=== PATIENT | female | born 1945 | race Caucasian/White ===

== ENCOUNTER 2022-11-28 09:00 | Outpatient (RCR) | payer MEDICARE, SELFPAY | END 2023-01-14 09:59 | disposition home or self-care (01) | PROVIDERS: PCP Family Medicine; Visit Provider Family Medicine | DX: M54.50 Low back pain, unspecified (principal); G89.29 Other chronic pain; R26.89 Other abnormalities of gait and mobility; Z51.89 Encounter for other specified aftercare | CPT/HCPCS: 97110; 97112; 97140; 97162 ==

== ENCOUNTER 2024-05-28 15:06 | Emergency (ER) | payer MEDICARE, SELFPAY ==
[2024-05-28 15:12] VITALS: BP 202/110; PULSE 90; RESP 18; TEMP 36.6; O2SAT 97; BMI 31.2
--- NOTE | 2024-05-28 16:43 | ED_ITS ---
HPI - General Adult General Date Seen: 05/28/24 Chief complaint: Hypertension Stated complaint: Hypertension Time Seen by Provider: 05/28/24 16:43 History of Present Illness HPI narrative: Pleasant 78-year-old female is referred from the clinic in [place] for el evated blood pressure. She apparently went to the clinic today to have a injection or a block done to her back. The providers at the [facility] for unable to do her to her procedure because her blood pressure was elevated. She is not sure if she took her normal blood pressure medication (metoprolol) yesterday evening or this morning. She does not have a headache. Vision is normal. No dizziness. No chest pain. No trouble breathing. No swelling in her legs. Urination has been normal. She feels fine. She takes losartan and metoprolol once daily. She can not remember if she takes some in the morning or at night. She think she probably took them yesterday evening, as her normal routine. She has not missed any doses. She has a history of high blood pressure and she is on metoprolol and losartan. Her primary care is through the [facility] system and she has a dicer operator through [facility]. She also has a history of sarcoidosis which in the past had cause some renal damage. She is now on long-term prednisone 5 mg daily for her sarcoid. She follows with a dicer operator through the [facility] system. She reports that for this past several months her kidney function has rebounded him and totally normal. It sounds like it responded to the prednisone treatment. Her dicer operator is very pleased with her lab work and anticipates she will never have renal failure from her sarcoidosis. He had previously been seeing her fairly often, but since she has been doing better, recently he has been recommending for every four-month checkups with him. She does typically run a blood pressure around 160/100 in her doctor's office. She says her dicer operator has talked to her about potentially increasing her blood pressure medications, but decided to take a wait and see approach at her last visit. She is actually due for her 4 month checkup in 3 days, on Friday. She has also been dealing with some pain in her low back recently. She actually went to the [facility] spine clinic in [place] today to get an injection in her low back. Her blood pressure was reading elevated at about 247/110. They did multiple rechecks. Because the blood pressure was elevated, even though she was asymptomatic, they told her to come to the ER and that she could not have the procedure today. They did not want her to have a stroke. Since she arrived here in the ER her blood pressure now come down to about 167/100. She did not take any extra medications or have any treatment for it. Just came down on its own. She can needs to remain asystematic. Related Data Home Medications ?Medication ?Instructions ?Recorded ?Confirmed atorvastatin 10 mg tablet 10 mg PO DAILY 05/28/24 05/28/24 gabapentin 300 mg capsule 300 mg PO DAILY 05/28/24 05/28/24 gabapentin 600 mg tablet 600 mg PO DAILY 05/28/24 05/28/24 losartan 100 mg tablet 100 mg PO DAILY 05/28/24 05/28/24 metformin 500 mg tablet 500 mg PO BID 05/28/24 05/28/24 metoprolol succinate 25 mg 25 mg PO DAILY 05/28/24 05/28/24 tablet,extended release 24 hr omeprazole 20 mg capsule,delayed 20 mg PO DAILY 05/28/24 05/28/24 release oxybutynin chloride 5 mg 5 mg PO DAILY 05/28/24 05/28/24 tablet,extended release 24 hr prednisone 5 mg tablet 5 mg PO DAILY 05/28/24 05/28/24 tramadol 50 mg tablet 50 mg PO 3XD PRN 05/28/24 05/28/24 Exam Narrative: Exam Narrative: Constitutional: Appears well-developed and well-nourished. Alert. Conversant. Non toxic. HENT: Head: Atraumatic. Nose: Nose normal. Mouth/Throat: Oral mucosa is clear and moist. no trismus. Eyes: Conjunctivae normal. EOM normal. Pupils equal, round, and reactive to light. No scleral icterus. Neck: Normal range of motion. Neck supple. No tracheal deviation present. No JVD Cardiovascular: Normal rate, regular rhythm. No gallop. No friction rub. Soft systolic murmur heard. Symmetric radial artery pulses . Normal cap refill Pulmonary/Chest: Effort normal. No stridor. No respiratory distress. No wheezes. No rales. No rhonchi . No tenderness. Abdominal: Soft.No distension. No mass. No tenderness. No rebound. No guarding. No CVA tenderness. Musculoskeletal: RUE: Normal range of motion. No tenderness. No deformity LUE: Normal range of motion. No tenderness. No deformity RLE: Normal range of motion. No edema. No tenderness. No deformity LLE: Normal range of motion. No edema. No tenderness. No deformity Neurological: Alert and oriented to person, place, and time. Normal strength. CN II-VII intact. No sensory deficit. GCS eye subscore is 4. GCS verbal subscore is 5. GCS motor subscore is 6. Normal coordination no focal deficits. Skin: Skin is warm and dry. No rash noted. No pallor. Normal capillary refill. Psychiatric: Normal mood. Normal affect. Const: Vital Signs, click to edit/add: Vital Signs - 24 hr 05/28/24 15:12 Temperature 97.8 F Pulse Rate [Pulse Oximeter] 90 Respiratory Rate 18 Blood Pressure [Ri ght Forearm] 202/110 H Pulse Oximetry 97 Oxygen Delivery Me thod Room Air Course Vital Signs Vital signs: Initial Vital Signs Temperature 97.8 F 05/28/24 15:12 Temperature Source Temporal Artery Scan 05/28/24 15:12 Pulse Rate 90 05/28/24 15:12 Pulse Rhythm Regular 05/28/24 15:12 Respiratory Rate 18 05/28/24 15:12 Blood Pressure 202/110 H 05/28/24 15:12 Blood Pressure Mean 140 H 05/28/24 15:12 Blood Pressure Position Sitting 05/28/24 15:12 Pulse Oximetry 97 05/28/24 15:12 Oxygen Delivery Method Room Air 05/28/24 15:12 Vital Signs Temperature 97.8 F 05/28/24 15:12 Pulse Rate 90 05/28/24 15:12 Respiratory Rate 18 05/28/24 15:12 Blood Pressure 202/110 H 05/28/24 15:12 Pulse Oximetry 97 05/28/24 15:12 Oxygen Delivery Method Room Air 05/28/24 15:12 Temperature 97.8 F 05/28/24 15:12 Pulse Rate 90 05/28/24 15:12 Respiratory Rate 18 05/28/24 15:12 Blood Pressure 202/110 H 05/28/24 15:12 Pulse Oximetry 97 05/28/24 15:12 Oxygen Delivery Method Room Air 05/28/24 15:12 Medical Decision Making MDM Narrative Medical decision making narrative: This patient is referred from her spine clinic today to the ER for evaluation of elevated blood pressure. There is a long history of of hypertension in the past. She is already on metoprolol once losartan for it. She also has a history of sarcoidosis which in the past, has cause kidney function. She had labs last week that showed normal kidney function. She has not had any recent concerning symptoms. No chest pain , headache, neurologic deficits. Urination has been since normal. No edema. The workup here is negative and the patient does not have any clinical. I recommended EKG and labs to check her kidney function and cardiac function to look for signs of end-organ damage, but since she just had labs last week, she declines them. There is no symptoms of hypertensive emergency or urgency. At this point I think she has medical decision-making capacity to decline my recommended workup. She wants to increase her normal distal metoprolol from 50 mg daily up to 100 mg daily this . She will be able check her blood pressure every day at home and then follow up with her dicer operator on Friday for ongoing blood pressure management. I think that is reasonable. I did review careful return precautions that if she does develop any symptoms that she should return to the ER immediately. Reviewed in detailed questions answered. Patient is comfortable and here for discharge home. She is pleased that , without treatment, her blood pressure has already come down from a max of 247/110 down to 167/100 here in the ER. Discharge Plan Discharge Clinical Impression: Hypertension Patient Disposition: Home, Self-Care Condition: Stable Instructions: Hypertension (ED) Additional Instructions: Please increase your dose of metoprolol from 50mg daily up to 100mg daily until you see your dicer operator on Friday. Record daily blood pressure measurements and bring them with you to your doctor on Friday. PLEASE COME BACK TO ER RIGHT AWAY IF YOU HAVE ANY CONCERNS, such as chest pain, headache, blurry vision, bloody urine, or stroke symptoms. Prescriptions: No Action metformin 500 mg tablet 500 mg PO BID gabapentin 600 mg tablet 600 mg PO DAILY atorvastatin 10 mg tablet 10 mg PO DAILY prednisone 5 mg tablet 5 mg PO DAILY tramadol 50 mg tablet 50 mg PO 3XD PRN oxybutynin chloride 5 mg tablet extended release 24hr 5 mg PO DAILY gabapentin 300 mg capsule 300 mg PO DAILY omeprazole 20 mg capsule,delayed release(DR/EC) 20 mg PO DAILY metoprolol succinate 25 mg tablet extended release 24 hr 25 mg PO DAILY losartan 100 mg tablet 100 mg PO DAILY Follow Up/Referrals: Shellie Esposito MD [Primary Care Provider] - Stand Alone Forms: [employer] Info Instructions
--- OUTSIDE RECORDS SUMMARY | 2024-05-28 17:35 | XMS_ITS | Encounter Summary ---
Author Organization [facility] Address [address] [place] [address] Care Team Providers Care Quality Assurance Group Leader Name Role Phone Shellie Esposito MD Primary Care Provider [phone] Encounter Details Date Type Department Care Team (Late Contact Info) Description 05/18/2024 Office Communication [facility] [address] [place] [id number] Delio Yeh MD [address] [place] [phone] Social History Tobacco Use Types Packs/Day Years Used Date Smoking Tobacco: Never Smokeless Tobacco: Never Alcohol Use Standard Drinks/Week Comments Not Currently 0 (1 standard drink = 0.6 oz pur e alcohol) Comments Unknown Sex and Gender Information Value Date Recorded Sex Assigned at Not on file Legal Sex Female 11:08 AM EST Gender Identity Not on file Sexual Orientation Not on file documented as of this encounter Miscellaneous Notes * Telephone Encounter - Antonio Smalls - 05/18/2024 3:03 PM CST Error. documented in this encounter Plan of Treatment Upcoming Encounters Date Type Department Care Team (Late Contact Info) Description 05/31/2024 2:00 PM MANAGER [employer] Office Visit [facility] [address] [place] [address] Delio Yeh MD [address] [place] [phone] documented as of this encounter Visit Diagnoses Not on filedocumented in this encounter Care Teams Quality Assurance Group Leader Relationship Specialty Start Date End Date Shellie Esposito MD [address] [place] [address] PCP - General Family Medicine 05/23/23 documented as of this encounter
--- OUTSIDE RECORDS SUMMARY | 2024-05-28 17:35 | XMS_ITS | Clinical Summary ---
Author Organization [employer] [facility] Address [place], [place] [address] Care Team Providers Care Auditor Medical Claims Name Role Phone Shellie Esposito MD Primary Care Provider Allergies Active Allergy Reactions Criticality Noted Date Comments Animal Dander Intolerance-Can't Take Low 11/02/2019 Unlisted Allergen (Include Detail In Comments) Intolerance-Can't Take Low 11/02/2019 Stuffy nose Quinolones Intolerance-Can't Take High 11/02/2019 Medications Medication Sig Dispensed Refills Start Date End Date Status cranberry conc-ascorbic acid 4,200-20 mg cap Take by mouth. 0 11/29/2016 Active cetirizine (ZYRTEC) 10 mg tablet Take 1 tablet by mouth once daily. 0 12/05/2016 Active medication order composer 0 12/12/2017 Active artificial tears, peg 400-propylene glycol, (SYSTANE, PROPYLENE GLYCOL,) 0.4-0.3 % drop ophthalmic 1 Drop. 12/30/2015 Active acetaminophen (TYLENOL) 325 mg tablet Four Times Daily as needed 11/01/2019 Active cholecalciferol (VITAMIN D3) 1,000 unit tablet Daily Active iron polysacch uhikkbk-u98-lb, 150-0.025-1 mg, (NIFEREX-150 Forte) 150-25-1 mg-mcg-mg capIndications:Anemia of chronic disease Take 1 Capsule by mouth once daily. 90 Capsule 09/06/2022 Active ksaaeyx-sefw-xbiwx-or eg-capryl 100 mg-150 mg- 50 mg-150 mg cap Take by mouth. Active sodium bicarbonate 650 mg tabletIndications:Met abolic acidosis Take 3 tablets per day 270 Tablet 3 10/03/2022 Active predniSONE (DELTASONE) 5 mg tabletIndications:Sta ge 3a chronic kidney disease (HC) Take 1 Tablet (5 mg) by mouth once daily with a meal. 90 Tablet 3 05/22/2023 Active atorvastatin (LIPITOR) 10 mg tabletIndications:Con trolled type 2 diabetes mellitus without complication, without long-term current use of insulin (HC) Take 1 Tablet (10 mg) by mouth once daily. 90 Tablet 3 11/03/2023 Active oxybutynin XL (DITROPAN XL) 5 mg CR tabletIndications:Urg e incontinence Take 1 Tablet (5 mg) by mouth once daily. 90 Tablet 3 11/03/2023 Active metFORMIN (GLUCOPHAGE) 500 mg tabletIndications:Typ e 2 diabetes mellitus with hyperosmolarity without coma, without long-term current use of insulin (HC) Take 1 Tablet (500 mg) by mouth two times daily with meals. 180 Tablet 3 11/03/2023 Active gabapentin (NEURONTIN) 300 mg capsuleIndications:Ne uropathic pain of finger, left Take 1 Capsule (300 mg) by mouth once daily in the afternoon. 90 Capsule 2 12/01/2023 Active gabapentin (NEURONTIN) 600 mg tabletIndications:Jabari ropathic pain of finger, left Take 1 Tablet (600 mg) by mouth once daily. 90 Tablet 2 12/01/2023 Active omeprazole (PRILOSEC) 20 mg Delayed-Release capsuleIndications:Ga stroesophageal reflux disease, unspecified whether esophagitis present Take 1 Capsule (20 mg) by mouth once daily before a meal. 90 Capsule 2 01/13/2024 Active traMADoL (ULTRAM) 50 mg tabletIndications:Lum bar radiculopathy Take 0.5-1 Tablets (25-50 mg) by mouth 3 times daily if needed for Pain. 24 Tablet 1 02/22/2024 Active losartan (COZAAR) 100 mg tabletIndications:HTN (hypertension) Take 1 Tablet (100 mg) by mouth once daily. 90 Tablet 04/07/2024 Active metoprolol succinate (Toprol XL) 25 mg Sustained-Release tabletIndications:HTN (hypertension) Take 1 Tablet (25 mg) by mouth once daily. 90 Tablet 2 05/28/2024 Active metoprolol succinate (Toprol XL) 25 mg Sustained-Release tabletIndications:HTN (hypertension) Take 1 Tablet (25 mg) by mouth once daily. 90 Tablet 3 05/22/2023 4 Discontinue d(Reorder (E-cancel not sent)) Active Problems Problem Noted Date Diagnosed Date Stage 3b chronic kidney disease 02/05/2023 Epiretinal membrane (ERM), bilateral 02/03/2023 Essential (hemorrhagic) thrombocythemia 10/04/19 22 HTN (hypertension) 10/03/2021 Type 2 diabetes mellitus wit h stage 3 chronic kidney disease, without long-term current use of insulin 08/24/2020 Sarcoidosis, lung 08/24/2020 Adenomatous colon polyp 04/12/2020 Overview (04/12/2020): Colonoscopy 03/2020 polyps, repeat in 5 years Metabolic acidosis 03/29/2020 Hypophosphatemia 03/29/2020 Thrombocythemia 03/03/2020 Overview (03/03/2020): Component Latest Ref Rng & Units 11/11/2019 12/01/2019 12/24/2019 PLATELET COUNT 140 - 440 thou/cu mm 489 (H) 502 (H) Stage 3a chronic kidney disease 01/20/2020 Sarcoidosis 01/20/2020 Hyperopia of right eye with astigmatism and pres byopia 01/01/2019 Myopia of left eye with astigmatism and presbyop ia 12/17/2018 Keratitis sicca, left eye 12/05/2016 Controlled type 2 diabetes m ellitus without complication, without long-term current use of insulin 12/02/2016 Hiatal hernia 02/08/2013 long-term (current) use of anticoagulants 2008 Overview (04/19/2009): INR Goal Range: 1.8 - 2.5 Vitamin D deficiency 12/15/2008 Renal calculi 12/13/2008 Bilateral pseudophakia 06/18/2005 VITREOUS DEGENERATION 06/18/2005 Esophageal reflux 05/11/2004 PAIN IN JOINT, SHOULDER 10/19/2001 IMPACTED CERUMEN 01/13/2001 OBESITY NOS 12/30/2000 STATUS, POSTMENOPAUSAL 12/30/2000 Resolved Problems Problem Noted Date Diagnosed Date Resolved Date CKD (chronic kidney disease) stage 4, GFR 15-29 ml/min 08/24/2020 03/15/2021 Encounters Date Type Department Care Team Description 05/28/2024 Procedure Only [facility] [address] [facility] [address] [place] [phone] Jim Leroy DO 05/25/2024 Refill [facility] [address] [place] [id number] Delio Yeh MD Refill Request (Metoprolol ER Succinate 25mg) 05/24/2024 11:20 AM HEEL ATTACHER WOOD Office Visit [facility] [address] [place] [address] Matheus Longoria, OD Eye Exam (DM CEE) 05/24/2024 Travel 05/17/2024 3:20 PM HEEL ATTACHER WOOD Ancillary Procedure [facility] [address] [place] [address] 05/17/2024 2:45 PM HEEL ATTACHER WOOD Orders Only [facility] [address] [place] [address] Lab, [facility] 05/17/2024 Travel 04/22/2024 Telephone [facility] [address] [place] [address] Jim Leroy DO Screening 04/19/2024 9:00 AM CDT Office Visit [facility] [place] [address] [facility] [address] [place] [phone] Jim Leroy DO Consult (Back Pain) 04/19/2024 Travel 04/15/2024 9:40 AM CDT Office Visit [facility] [address] [place] [address] Shellie Esposito MD Ear Problem (Ears are plugged, having a hard time hearing); Immunization/Injection 04/15/2024 Travel 04/12/2024 Travel 04/06/2024 Refill [facility] [address] [place] [address] Shellie Esposito MD Refill Request (Losartan 100mg) 04/02/2024 Telephone [facility] [address] [place] [id number] Shellie Esposito MD Screening (Spine Center) 04/01/2024 9:00 AM CDT Office Visit [facility] [address] [place] [id number] Navneet Rosenberg MD Musculoskeletal Problem (Follow up back pain, review MRI and discuss options) 04/01/2024 Travel from Last 3 Months Immunizations Name Administration Dates Next Due Amb Influenza, Inactivated A IIV4 (Age 65+ Years) Preserv Free 04/04/2020 COVID-19 VACCINE SPIKEVAX (M ODERNA 50MCG/0.5ML) 12YO+ PFS 05/07/2023 COVID-19 vaccine (Pfizer-Bio NTech 30mcg/0.3mL) 12YO+ BIVALENT PF, MDV 05/20/2022 COVID-19 vaccine (Pfizer-Bio NTech 30mcg/0.3mL) 12YO+ RASHAAD-SUCROSE PF, MDV 10/03/2021 COVID-19 vaccine (Pfizer-Bio NTech 30mcg/0.3mL) PF, MDV 06/13/2021 Influenza, Inactivated AIIV4 (Age 65+ Years) Preserv Free 04/09/2023,05/06/2022,03/15/2021 Influenza, Inactivated IIV3 (Age 65+ Years) Preserv Free 04/15/2024,03/10/2019 Pneumococcal Poly,23-Valent (Pneumovax) 01/24/20 20 Pneumococcal conj 13-Valent (Prevnar 13) 019 Tdap 12/29/2015,05/10/2009 Family History Medical History Relation Name Comments Genetic Other 1 mother: heart v alve defect, had repair surgery done~father: HTN, OA, prostate CA~grprs: PGM: breast CA MGM: Alzheimer's~sibs: HTN Genetic Other 2 mother: heart v alve defect, had repair surgery done~father: HTN, OA, prostate CA, CVA and dec @ 82 yo~grprs: PGM: breast CA MGM: Alzheimer's~sibs: HTN Cancer-breast Paternal Aunt Cancer-breast Paternal Grandmother Relation Name Status Comments Other 1 Other 2 Paternal Aunt Paternal Grandmother Social History Tobacco Use Types Packs/Day Years Used Date Smoking Tobacco: Never Smokeless Tobacco: Never Tobacco Cessation:Counseling Given: Yes Alcohol Use Standard Drinks/Week Comments Not Currently 0 (1 standard drink = 0.6 oz pur e alcohol) Alcoholic Drinks/day: 0 PHQ-2 Answer Date Recorded PHQ-2 TOTAL SCORE 0 11/03/2023 Social Connections Answer Date Recorded Do you often feel lonely or isolated from those around you? 0 11/03/2023 Financial Resource Strain Answer Date R ecorded Difficulty of Paying Living Expenses 3 11/03/2023 Difficulty of Paying Living Expenses Not on file 11/03/2023 Food Insecurity Answer Date Recorded Do you worry your food will run out before you are able to buy more? 1 11/03/2023 Transportation Needs Answer Date Record ed Does lack of transportation keep you from medica l appointments? 1 11/03/2023 Does lack of transportation keep you from work, meetings or getting things that you need? 1 11/03/2023 Housing Stability Answer Date Recorded What is your housing situation today? 1 11/03/2023 Sex and Gender Information Value Date Recorded Sex Assigned at Female 08/21/2020 11:18 AM HEEL ATTACHER WOOD Gender Identity Female 08/21/2020 11:18 AM HEEL ATTACHER WOOD Sexual Orientation Straight 08/21/2020 11 :18 AM HEEL ATTACHER WOOD Obstetrics History Last Filed Vital Signs Vital Sign Reading Time Taken Comments Blood Pressure 120/90 04/19/2024 9:25 AM CDT Pulse 94 04/19/2024 9:25 AM CDT Temperature 36.6 C (97.9 F) 04/01/2024 9:07 AM CDT Respiratory Rate 16 06/13/2021 1:16 PM HEEL ATT[employer]ER WOOD Oxygen Saturation 98% 04/15/2024 9:54 AM CDT Inhaled Oxygen Concentration - - Weight 76.7 kg (169 lb) 04/19/2024 9:25 AM CDT Height 152.4 cm (5') 04/19/2024 9:25 AM CDT Body Mass Index 33.01 04/19/2024 9:25 AM CDT Plan of Treatment Upcoming Encounters Date Type Department Care Team (Late st Contact Info) Description 05/31/2024 9:15 AM HEEL ATTACHER WOOD Nurse/Clinic Staff Only [facility] [address] [place] [address] Health Maintenance Due Date Last Done Comments Zoster (shingles) series for age 50+ (1 of 2) 1994 RSV vaccine for adults or (1 - 1-dose 75+ series) 2019 COVID-19 vaccine series ( season) 2024 05/07/2023, 05/20/2022, 10/03/2021, Additional history exists Medicare Wellness for age 65+ 11/03/2024, 10/04/2022, 10/03/2021, Additional history exists Depression screening for age 12+ 11/04/2024 11/05/2023, 11/03/2023, 10/07/2022, Additional history exists BMI (ht and wt on same day) for age 18+ 04/19/2025 04/19/2024, 11/03/2023, 10/04/2022, Additional history exists Tetanus booster 12/28/2025 12/29/2015, 05/10/2009 Tdap Completed 12/29/2015, 05/10/2009 Hepatitis C screening for ag e 18-79 Completed 12/12/2017 Pneumococcal series for age 65+ Completed , 12/14/2018 DEXA/DXA scan for age 65+ Completed 2023, 12/06/2020, 12/03/2016, Additional history exists Influenza for age 65+ Completed 04/15/2024 , 04/09/2023, 05/06/2022, Additional history exists Procedures Procedure Name Priority Date/Time Associated Diagnosis Comments XR MAMMO RINKU BILAT SCREEN Routine 05/17/2024 3:26 PM HEEL ATTACHER WOOD Encounter for screening mammogram for malignant neoplasm of breast XR DXA BONE DENSITY 2 SITES AXIAL Routine 11/05/2023 10:45 AM CDT Menopause ANTI HCV Routine 12/12/2017 10:00 AM CDT Need for hepatitis C screening test from Last 3 Months or Most Recently Relevant to Health Maintenance Results * XR MAMMO RINKU BILAT SCREEN (05/17/2024 3:26 PM HEEL ATTACHER WOOD) Anatomical Region Laterality Modality BREASTS, Breast Left, Breast Right Bilateral Mammography Impressions 05/17/2024 3:37 PM HEEL ATTACHER WOOD There is no radiographic evidence for malignancy. Recommend annual mammograms. MAMMOGRAM ASSESSMENT: ACR 1 Negative PATIENTS: You will also receive a letter with your examination results in an easy to read format. If you have questions about your results, please contact your referring provider. Narrative 05/17/2024 3:37 PM HEEL ATTACHER WOOD For Patients: As a result of the Century Cures Act, medical imaging exams and procedure reports are released immediately into your electronic medical record. You may view this report before your referring provider. If you have questions, please contact your health care provider. XR MAMMO RINKU BILAT SCREEN [[id number]] CLINICAL HISTORY: This is an asymptomatic 78 y.o. patient. INDICATION FOR EXAM: Mammogram Screening. TECHNIQUE: CC & MLO views were obtained. This study was evaluated with the assistance of Computer-Aided Detection. Breast Tomosynthesis was used in interpretation. COMPARISON FILM: Yes 04/09/23 [employer] 04/10/22 [employer] FINDINGS: The breasts are almost entirely fatty. There are no dominant masses, suspicious micro calcifications or areas of architectural distortion. Shellie Esposito MD MAMMO * XR DXA BONE DENSITY 2 SITES AXIAL (11/05/2023 10:45 AM CDT) Anatomical Region Laterality Modality Spine, HIPS, HIPL, HIPR Other Impressions 11/11/2023 2:07 PM CDT Osteopenia. RECOMMENDATIONS: The National Osteoporosis Foundation recommends pharmacologic treatment for patients with T-scores of -2.5 or less, patients with prior history of fragility fractures, or patients with 10-year probability of greater than 3% at hips or greater than 20% of suffering major osteoporotic fractures. Recommend continued optimization of calcium and vitamin D intake through dietary means and/or supplementation and regular exercise. Consider pharmacologic therapy for osteopenia with increased fracture risk. Follow-up bone density reading in 2 years if therapy initiated to assess therapeutic efficacy. Roseline Mcnamara PA-C [facility] 11/11/2023 Narrative 11/11/2023 2:07 PM CDT RESULT For Patients: Results are automatically released to your [facility] ([email or web address]) account once available, in compliance with federal regulations. This means that you may see your results before your provider has had a chance to review them. Please allow 2-3 business days for your provider to comment on the results. XR DXA Bone Mineral Density (BMD) EXAM LOCATION: [facility] [address] [facility] [address] PATIENT NAME: Lilia Esparza DATE OF : 1945 EXAM DATE: 11/05/2023 REQUESTING PROVIDER: Shellie Esposito MD GENDER AT : female HEIGHT: 5' (11/03/2023) WEIGHT: 171 lb 12.8 oz (11/03/2023) MENOPAUSAL STATUS: Postmenopausal RACE/ETHNICITY: White RISK FACTORS: Family History of Osteoporosis, Steroid Medication (non-topical), and White Race CURRENT MEDICATION FOR BONE LOSS: NONE INDICATION: Menopause COMPARISON DATE(S): 2020 DXA scans are compared to prior studies for a patient only when the two (or more) studies were performed on the same scanner. It is not possible to compare data generated on one scanner to data from another because there are not standards in DXA equipment. This applies even if the two scanners are made by the same supervisor metal furniture assembly. PROCEDURE: Dual-energy x-ray absorptiometry performed with routine technique. Reporting is completed in the form of a T-score. The T-score represents the standard deviation from peak bone mass based on young healthy adult. A Z-score is used for diagnosis in premenopausal women, and for men under the age of 50. FINDINGS: RESULT LUMBAR SPINE L1 - L4 BMD: 1.101 g/cm2 T-Score: - 0.7 Z-Score: + 0.7 Change from prior in 2020: Increase 2.6%. RESULTS FEMUR Left femoral neck BMD: 0.736 g/cm2 T-Score: - 2.2 Z-Score: - 0.3 Change from prior in 2020: Increase 1.7%. Right femoral neck BMD: 0.726 g/cm2 T-Score: - 2.2 Z-Score: + 0.4 Change from prior in 2020: Decrease 2.7%. Left hip BMD: 0.729 g/cm2 T-Score: - 2.2 Z-Score: - 0.6 Change from prior in 2020: Decrease 3.3%. Right hip BMD: 0.750 g/cm2 T-Score: - 2.0 Z-Score: - 0.4 Change from prior in 2020: Decrease 3.2%. WHO criteria: Normal: T-score at or above -1 SD Osteopenia: T-score between -1.1 and -2.4 SD Osteoporosis: T-score at or below -2.5 SD FRAX RISK CALCULATION (USED FOR OSTEOPENIA ONLY): 10-year probability of major osteoporotic fracture: 16.2%. 10-year probability of hip fracture: 5.0%. Shellie Esposito MD DEXA * ANTI HCV [[id number]] (12/12/2017 10:00 AM CDT) HEPATITIS C ANTIBODY Non-React maximo Non-React maximo 12/12/2017 6:49 PM CDT [facility] Comment:Antibodies to HCV no t detected; does not exclude the possibility of exposure to HCV. Blood BLOOD SPECIMEN / Unknown Butterfly / Unknown 12/12/2017 10:00 AM CDT 12/12/2017 10:03 AM CDT Shellie Esposito MD SEND OUTS [facility] [address] [place] [address], from Last 3 Months or Most Recently Relevant to Health Maintenance Advance Directives Documents on File Type Date Recorded Patient Therapist'S Assistant Expl anation Healthcare Directive 12/15/2017 2:06 PM HE ALTHCARE DIRECTIVE, [facility], 01/20/03 Care Teams Auditor Medical Claims Relationship Specialty Start Date End Date Shellie Esposito MD [address] [place] [address] PCP - General Family Practice 12/14/10
--- OUTSIDE RECORDS SUMMARY | 2024-05-28 17:35 | XMS_ITS | Referral Summary ---
Author Organization [facility] Address [address] [place] [address] Care Team Providers Care Line Maintenance Technician Name Role Phone Unavailable Primary Care Provider Unavailabl e Source Comments Patient records contain information from all sites at [facility]. For routine questions regarding patient records, call [phone] during business hours, M-F 8:00 AM - 5:00 PM Central Time. Record requests for emergency care only can be directed to [phone] at any time.[facility] Allergies Active Allergy Reactions Criticality Noted Date Comments Animal Dander GI intolerance Low 11/02/2019 Quinolones GI intolerance High 11/02/2019 Medications cranberry fruit extract (CRANBERRY EXTRACT ORAL) Take 2 capsules by mouth 2 (two) times a day. Strength unknown 6 Active metFORMIN (GLUCOPHAGE) 500 mg tablet Take 1 tablet by mouth 2 (two) times a day. 6 Active cxbds-0v-rlm-epa -fish oil 300-1,000 mg capsule Take 1 capsule by mouth every evening. 6 Active omeprazole (PriLOSEC) 20 mg capsule Take 1 capsule by mouth every morning. 6 Active peg 400-propylene glycol (SYSTANE) 0.4-0.3 % ophthalmic solution 1 drop as directed. Chronic dry eyes. Takes twice daily and as needed in both eyes. 6 Active multivitamin tablet Take 1 tablet by mouth daily. Women's One-A-Day 6 Active gabapentin (NEURONTIN) 300 mg capsule Take 300 mg by mouth. 3 Active gabapentin (NEURONTIN) 600 mg tablet Take 600 mg by mouth. 2 Active sodium bicarbonate 650 mg tablet Take by mouth. 3 Active losartan (COZAAR) 50 mg tablet Take 50 mg by mouth. 3 Active atorvastatin (LIPITOR) 10 mg tablet Take 10 mg by mouth. 3 Active acetaminophen (TYLENOL) 325 mg tablet Four Times Daily as needed 0 Active predniSONE (DELTASONE) 5 mg tablet TAKE 1 TABLET BY MOUTH ONCE DAILY WITH A MEAL. GENERIC EQUIVALENT FOR DELTASONE 3 Active metoprolol succinate (TOPROL-XL) 25 mg 24 hr tablet Take 25 mg by mouth. 2 Active vhhf-T61-dolns acid (FERREX 150 FORTE) 150-25-1 mg-mcg-mg per capsule Take 1 capsule by mouth daily. 3 Active cholecalciferol, vitamin D3, 25 mcg (1,000 Unit) tablet daily. Active lrboeto-zxsm-cqt qh-nkiv-btnpds 100 mg-150 mg- 50 mg-150 mg capsule Take by mouth. Activ e Active Problems Problem Noted Date Diagnosed Date Pain Hand Left 09/30/2022 Immunizations Name Administration Dates Next Due Tdap 12/29/2015 Social History Tobacco Use Types Packs/Day Years Used Date Smoking Tobacco: Never Social Connection and Isolat ion Panel [NHANES] Answer Date Recorded In a typical week, how many times do you talk on the phone with family, friends, or neighbors? More than three times a week 08/23/2020 How often do you get togethe r with friends or relatives? Once a week 08/23/2020 How often do you attend chur or confucianism services? More than 4 times per year 08/23/2020 Do you belong to any clubs o r organizations such as yarsani groups, unions, fraternal or athletic groups, or school groups? Yes 08/23/2020 How often do you attend meet ings of the clubs or organizations you belong to? More than 4 times per year 08/23/2020 Are you , , di vorced, , never , or living with a partner? 08/23/2020 AUDIT-C Answer Date Recorded Q1: How often do you have a drink containing alc ohol? Never 08/23/2020 Average Number of Drinks Not on file 021 Frequency of Binge Drinking Not on file 08/2020 [facility] [place] [facility] - Occupational Stress Questionnaire Answer Date Recorded Do you feel stress - tense, restless, nervous, or anxious, or unable to sleep at night because your mind is troubled all the time - these days? Not at all 08/23/2020 Exercise Vital Sign Answer Date Recorde d On average, how many days pe r week do you engage in moderate to strenuous exercise (like a brisk walk)? 5 days 08/23/2020 On average, how many minutes do you engage in exercise at this level? 10 min 08/23/2020 Hunger Vital Sign Answer Date Recorded Within the past 12 months, y ou worried that your food would run out before you got the money to buy more. Never true 08/24/19 21 Within the past 12 months, t he food you bought just didn't last and you didn't have money to get more. Never true 08/23/2020 PRAPARE - Transportation Answer Date Re corded In the past 12 months, has l ack of transportation kept you from medical appointments or from getting medications? No 08/2020 In the past 12 months, has l ack of transportation kept you from meetings, work, or from getting things needed for daily living? No 08/23/2020 Nutrition Answer Date Recorded Nutrition: EVOO Fat Source Unknown 08/26 Nutrition: Servings of Fruits/Vegetables per Day Not on file 08/27/2023 Dental Answer Date Recorded Dental: Regular Dentist Unknown 08/27/19 24 Education Answer Date Recorded What is the highest level of school you have completed or the highest degree you have received? 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 Pulse 78 01/23/2016 11:12 AM CDT Value from [facility]. Temperature - - Respiratory Rate 18 01/23/2016 5:04 AM CDT Value from [facility]. Oxygen Saturation - - Inhaled Oxygen Concentration - - Weight 90.2 kg (198 lb 13.7 oz) 02/01/2016 4:18 PM CDT Vital sign result from CDM. Height 154 cm (5' 0.63) 02/01/2016 4:1 8 PM CDT Vital sign result from CDM. Body Mass Index 38.03 02/01/2016 4:18 PM CDT Plan of Treatment Not on file Medical Devices Implanted Type Area Packaging Clerk Device Identifier Shelf Expiration Date Model / Serial / Lot [place] Orthoblend Sm Defect 5cc - Ferreira [id number] Implanted:Qty: 1 on 01/22/2016 Bone or Tissue Other/Legacy - See Implant Description [employer] Description:Device Manufactu rer - [employer]. Body Location - Other. bone for packing defect. Device Status Text - [facility] [id number]. Thurston-Finge r Silicone Sz 10 - Ferreira [id number] Implanted:Qty: 1 on 01/22/2016 Finger Implant Other/Legacy - See Implant Description Integra Description:Device Manufactu rer - Integra BA [employer] Ron. Body Location - Other. Left. Device Status Text - [id number]. K-Wire-Ss 4 Smooth .045 - Ferreira [id number] Implanted:Qty: 2 on 12/29/2015 Hardware e.g. pins/screws /rods Aleksey Description:Device Manufactu rer - [place] Ron.. Device Status Text - HARDWARE-872. K-Wire-Ss 4 Smooth .035 - Ferreira [id number] Implanted:Qty: 2 on 12/29/2015 Hardware e.g. pins/screws /rods Aleksey Description:Device Manufactu rer - [place] Ron.. Device Status Text - HARDWARE-873. K-Wire-Ss 4 Smooth .035 - Ferreira [id number] Implanted:Qty: 1 on 01/22/2016 Hardware e.g. pins/screws /rods [place] Description:Device Manufactu rer - Aleksey Ron.. Device Status Text - HARDWARE-873. Conversions - Default Historical Implant Device Implanted:01/21 (Quantity not on file) Knee Implant Left: Knee Description:Body Location - Knee L. Device Status Text - Knee Imp. Cement Bone Large - Ferreira [id number] Implanted:Qty: 1 on 12/29/2015 Misc Other Aleksey Description:Device Manufactu rer - Aleksey Ron.. Device Status Text - [id number]. Conversions - Default Historical Implant Device Implanted:01/21 (Quantity not on file) Ocular Lens Left: Eye Description:Body Location - Eye L. Device Status Text - OculrLens. Conversions - Default Historical Implant Device Implanted:01/21 (Quantity not on file) Ocular Lens Right: Eye Description:Body Location - Eye R. Device Status Text - OculrLens. Procedures Procedure Name Priority Date/Time Associated Diagnosis Comments ELECTROLYTE (CHEM 4) PANEL, S/P Routine 01/01/2016 4:39 PM CDT from Last 3 Months or Most Recently Relevant to Health Maintenance Results * (ABNORMAL) Electrolyte (Chem 4) Panel (01/01/2016 4:39 PM CDT) Chloride, S 103 98 - 107 MMOL/L [facility] HX Bicarbonate, P/S 22 22 - 29 MMOL/L [facility] Sodium, S 141 135 - 145 MMOL/L [facility] Potassium, S 4.1 3.6 - 5.2 MMOL/L [facility] Creatinine 1.1 0.6 - 1.1 MG/DL [facility] BUN (Blood Urea Nitrogen), S 11 6 - 21 MG/DL [facility] Anion Gap 16(H) 7 - 15 [facility] Glucose, S 155(H) 70 - 140 MG/DL [facility] 01/01/2016 4:39 PM CDT 01/01/2016 4:39 PM CDT Mian Godoy LAB BLOOD ADD-ON Final Result [facility] [address] [place] [id number] from Last 3 Months or Most Recently Relevant to Health Maintenance Insurance [facility] [place] [address]
--- OUTSIDE RECORDS SUMMARY | 2024-05-28 17:35 | XMS_ITS | Encounter Summary ---
Author Organization [facility] Address [address] [place] [address] Care Team Providers Care Safety Sealer Name Role Phone Shellie Esposito MD Primary Care Provider [phone] Encounter Details Date Type Department Care Team (Late st Contact Info) Description 04/23/2024 Telephone [facility] [address] [place] [address] Farhan Triplett [address] [place] [address] Social History Tobacco Use Types Packs/Day Years [...] encounter Miscellaneous Notes * Telephone Encounter - Farhan Triplett - 04/23/2024 4:02 PM CDT Left a voicemail reminding patient to have previsit labs completed prior to their visit. Faxed order to Irene Lauren (Hard Copy mailed). Asked patient to call back if they would like the orders faxed elsewhere or if they would like to schedule with [place] lab. documented in this encounter Plan of Treatment Upcoming Encounters Date Type Department Care Team (Late st Contact Info) Description 05/31/2024 2:00 PM PRESIDENTIAL HELICOPTER CREW CHIEF Office Visit [facility] [place] [address] [place] [phone] Delio Yeh MD [address] [place] [phone] documented as of this encounter Visit Diagnoses Not on filedocumented in this encounter Care Teams Safety Sealer Relationship Specialty Start Date End Date Shellie Esposito MD [address] [place] [address] PCP - General Family Medicine 05/23/23 documented as of this encounter
--- OUTSIDE RECORDS SUMMARY | 2024-05-28 17:35 | XMS_ITS | Encounter Summary ---
Author Organization [facility] Address [address] [place] [address] Care Team Providers Care Technical Service Representative Name Role Phone Shellie Esposito MD Primary Care Provider Encounter Details Date Type Department Care Team (Late st Contact Info) Description 05/10/2024 Orders Only [facility] [address] [place] [address] Delio Yeh MD [address] [place] [phone] Stage 3a chronic kidney disease (HCC) Social History Tobacco Use Types Packs/Day Years [...] on file documented as of this encounter Progress Notes * Delio Yeh MD - 05/10/2024 11:59 PM CST I reviewed patient's labs, stable kidney function at this time. She sent a message previously asking if she could delay her appointment as she was not able to get in to have labs done prior to her scheduled appointment and I told her she could re-schedule. Please eliza her last missed appointment as postpone rather than no show. I will notify of her labs via [employer] and ask her to call to schedule follow-up with me in [facility]. Thanks. -Renaldo Yeh * Sagar Priest RN - 05/10/2024 11:59 PM CST Previsit lab- completed per protocol documented in this encounter Plan of Treatment Upcoming Encounters Date Type Department Care Team (Late st Contact Info) Description 05/31/2024 2:00 PM POWER BALLAST MACHINE OPERATOR Office Visit [facility] [address] [place] [address] Delio Yeh MD [address] [place] [address] documented as of this encounter Procedures Procedure Name Priority Date/Time Associated Diagnosis Comments PROTEIN / CREATININE RATIO, URINE Routine 05/18/2024 8:13 AM POWER BALLAST MACHINE OPERATOR Stage 3a chronic kidney disease (HCC) VITAMIN D 25 HYDROXY Routine 05/17/2024 1:44 PM POWER BALLAST MACHINE OPERATOR Stage 3a chronic kidney disease (HCC) HEMOGLOBIN Routine 05/17/2024 1:44 PM POWER BALLAST MACHINE OPERATOR Stage 3a chronic kidney disease (HCC) RENAL FUNCTION PANEL Routine 05/17/2024 1:44 PM POWER BALLAST MACHINE OPERATOR Stage 3a chronic kidney disease (HCC) documented in this encounter Results * (ABNORMAL) Urine Protein / creatinine ratio (05/18/2024 8:13 AM POWER BALLAST MACHINE OPERATOR) Creatinine, Ur 152 20 - 275 mg/dL See order comments Urine Protein/Creati nine Ratio 1,763(H) 24 - 184 mg/g creat See order comments Protein/Creati nine Ratio, Urine 1.763(H) 0.024 - 0.184 mg/mg creat See order comments Protein Urine Random 268(H) 5 - 24 mg/dL See order comments Comment: Verified by repeat analysis. Urine (Urine, Clean Catch) 05/18/2024 8:13 AM POWER BALLAST MACHINE OPERATOR 05/18/2024 8:14 AM POWER BALLAST MACHINE OPERATOR Narrative [facility] - 05/19/2024 3:50 PM POWER BALLAST MACHINE OPERATOR SPLIT 05/17/2024 FROM [id number] Resulting Agency Comment Performing Organization Information: Site ID: [id number] Name: Anabel Aguilera Address: [address] [place] [phone] Director: Pedrito Yap us Delio Yeh MD LAB URINE ORDERABLES Final Re sult Performing Organization Address [facility] Co de Phone Number [facility] See order comments [place] [address] * Vitamin D 25 hydroxy (05/17/2024 1:44 PM POWER BALLAST MACHINE OPERATOR) Vitamin D, 25-OH, Total, IA 31 30 - 100 ng/mL See order comments Comment: Vitamin D Status 25-OH Vitamin D: Deficiency: <20 ng/mL Insufficiency: 20 - 29 ng/mL Optimal: > or = 30 ng/mL For 25-OH Vitamin D testing on patients on D2-supplementation and patients for whom quantitation of D2 and D3 fractions is required, the QuestAssureD(TM) 25-OH VIT D, (D2,D3), LC/MS/MS is recommended: order code 18339 (patients >2yrs). See Note 1 Note 1 For additional information, please refer to http://education.Hoonto/faq/EKC824 (This link is being provided for informational/ educational purposes only.) Blood (Blood, Venous) 05/17/2024 1:44 PM POWER BALLAST MACHINE OPERATOR 05/17/2024 1:44 PM POWER BALLAST MACHINE OPERATOR Narrative [facility] - 05/18/2024 6:22 AM POWER BALLAST MACHINE OPERATOR MULTIPLE TESTING PRIORITIES; ROUTINE TESTING TO FOLLOW. Resulting Agency Comment Performing Organization Information: Site ID: [id number] Name: Anabel Aguilera Address: [address] [place] [phone] Director: Pedrito Yap Delio Yeh MD LAB BLOOD ORDERABLES Final Re sult Performing Organization Address [facility]/ZIP Co de Phone Number [facility] See order comments [place] [address] * Hemoglobin (05/17/2024 1:44 PM POWER BALLAST MACHINE OPERATOR) Hemoglobin 12.4 11.7 - 15.5 g/dL See order comments Blood (Blood, Venous) 05/17/2024 1:44 PM POWER BALLAST MACHINE OPERATOR 05/17/2024 1:44 PM POWER BALLAST MACHINE OPERATOR Narrative [facility] - 05/18/2024 6:22 AM POWER BALLAST MACHINE OPERATOR MULTIPLE TESTING PRIORITIES; ROUTINE TESTING TO FOLLOW. Resulting Agency Comment Performing Organization Information: Site ID: [id number] Name: [facility] Address: [address] [place] [phone] Director: Pedrito Yap us Delio Yeh MD LAB BLOOD ORDERABLES Final Re sult [facility] See order comments [place] [address] * (ABNORMAL) Renal function panel (05/17/2024 1:44 PM POWER BALLAST MACHINE OPERATOR) Glucose 189(H) 65 - 99 mg/dL See order comments Comment: Fasting reference interval For someone without known diabetes, a glucose value >125 mg/dL indicates that they may have diabetes and this should be confirmed with a follow-up test. BUN 23 7 - 25 mg/dL See order comments Creatinine 1.18(H) 0.60 - 1.00 mg/dL See order comments eGFR CKD-EPI CR 2020 47(L) > OR = 60 mL/min/1.7 3m2 See order comments BUN/Creatinine Ratio 19 6 - 22 (calc) See order comments Sodium 141 135 - 146 mmol/L See order comments Potassium 4.8 3.5 - 5.3 mmol/L See order comments Chloride 107 98 - 110 mmol/L See order comments Bicarbonate (CO2) 19(L) 20 - 32 mmol/L See order comments Calcium 9.4 8.6 - 10.4 mg/dL See order comments Phosphorus 4.0 2.1 - 4.3 mg/dL See order comments Albumin 4.2 3.6 - 5.1 g/dL See order comments Blood (Blood, Venous) 05/17/2024 1:44 PM POWER BALLAST MACHINE OPERATOR 05/17/2024 1:44 PM POWER BALLAST MACHINE OPERATOR Narrative [facility] - 05/18/2024 6:22 AM POWER BALLAST MACHINE OPERATOR MULTIPLE TESTING PRIORITIES; ROUTINE TESTING TO FOLLOW. Resulting Agency Comment Performing Organization Information: Site ID: [id number] Name: [facility] Address: [address] [place] [phone] Director: Pedrito Yap us Delio Yeh MD LAB BLOOD ORDERABLES Final Re sult [facility] See order comments [place] [address] documented in this encounter Visit Diagnoses Diagnosis Stage 3a chronic kidney disease (HCC) documented in this encounter Care Teams Technical Service Representative Relationship Specialty Start Date End Date Shellie Esposito MD [address] [place] [address] PCP - General Family Medicine 05/23/23 documented as of this encounter
--- OUTSIDE RECORDS SUMMARY | 2024-05-28 17:35 | XMS_ITS | Encounter Summary ---
Author Organization [facility] Address [address] [place] [address] Care Team Providers Care Millroom Supervisor Name Role Phone Shellie Esposito MD Primary Care Provider [phone] Encounter Details Date Type Department Care Team (Late Contact Info) Description 05/28/2024 Office Communication [facility] [address] [place] [address] Delio Yeh MD [address] [place] [phone] Social History Tobacco Use Types Packs/Day Years [...] * Telephone Encounter - Antonio Smalls - 05/28/2024 2:54 PM CST LVM for patient regarding collecting copay for 05/31 appointment, copay will be billed. documented in this encounter Plan of Treatment Upcoming Encounters Date Type Department Care Team (Late Contact Info) Description 05/31/2024 2:00 PM FOOTWEAR SALES REPRESENTATIVE Office Visit [facility] [address] [place] [address] Delio Yeh MD [address] [place] [phone] documented as of this encounter Visit Diagnoses Not on filedocumented in this encounter Care Teams Millroom Supervisor Relationship Specialty Start Date End Date Shellie Esposito MD [address] [place] [address] PCP - General Family Medicine 05/23/23 documented as of this encounter
--- OUTSIDE RECORDS SUMMARY | 2024-05-28 17:35 | XMS_ITS ---
Author Organization [facility] Address [address] [place] [address] Care Team Providers Care Tier In Name Role Phone Unavailable Unavailable Unavailable Surgery Details Not on file Complications Check Surgery Details section. Procedure Estimated Blood Loss Check Surgery Details section. Procedure Findings Check Surgery Details section. Procedure Specimens Taken Check Surgery Details section.
--- OUTSIDE RECORDS SUMMARY | 2024-05-28 17:35 | XMS_ITS | Encounter Summary ---
Author Organization [facility] [place] Address [address] [place] [address] Care Team Providers Care Communications Department Chairperson Name Role Phone Shellie Esposito MD Primary Care Provider [phone] Encounter Details Date Type Department Care Team (Late st Contact Info) Description 05/18/2024 Office Communication [facility] [place] [address] [place] [address] Faith Castañeda, RN [address] [place] [address] Social History Tobacco Use Types Packs/Day Years [...] encounter Miscellaneous Notes * Telephone Encounter - Faith Castañeda RN - 05/18/2024 2:10 PM CST Images from the original note were not included. Delio Yeh MD Johnson, Allison, RN I reviewed patient's labs, stable kidney function [...] I will notify of her labs via [employer] and ask her to call to schedule follow-up with me in [facility] soon. Thanks. -Renaldo Yeh Noted by nursing. FD- please see note above regarding missed appt. documented in this encounter Plan of Treatment Upcoming Encounters Date Type Department Care Team (Late st Contact Info) Description 05/31/2024 2:00 PM SIGNAL OPERATOR TECHNICAL Office Visit [facility] [place] [address] [place] [address] Delio Yeh MD [address] [place] [phone] documented as of this encounter Visit Diagnoses Not on filedocumented in this encounter Care Teams Communications Department Chairperson Relationship Specialty Start Date End Date Shellie Esposito MD [address] [place] [address] PCP - General Family Medicine 05/23/23 documented as of this encounter
--- OUTSIDE RECORDS SUMMARY | 2024-05-28 17:35 | XMS_ITS | Encounter Summary ---
Author Organization [facility] Address [address] [place] [address] Care Team Providers Care Dough Scaler And Mixer Name Role Phone Shellie Esposito MD Primary Care Provider [phone] Encounter Details Date Type Department Care Team (Late st Contact Info) Description 05/18/2024 Office Communication [facility] [address] [place] [address] Delio Yeh MD [address] [place] [phone] Social History Tobacco Use Types Packs/Day Years [...] * Telephone Encounter - Antonio Smalls - 05/26/2024 10:55 AM CST Spoke with emergency contact spouse Sanya and asked him to have Lilia call us back to confirm appointment. * Telephone Encounter - Antonio Smalls - 05/19/2024 12:28 PM CST Attempt to reach patient 2x, no answer. * Telephone Encounter - Antonio Smalls - 05/18/2024 3:01 PM CST LVM for patient to call back to confirm new appointment time for FU with Dr. Yeh in [facility] (05/31 @ 2PM). FD will follow up again tomorrow to try to confirm appointment. documented in this encounter Plan of Treatment Upcoming Encounters Date Type Department Care Team (Late st Contact Info) Description 05/31/2024 2:00 PM DEMOLITION WORKER Office Visit [facility] [place] [address] [place] [address] Delio Yeh MD [address] [place] [phone] documented as of this encounter Visit Diagnoses Not on filedocumented in this encounter Care Teams Dough Scaler And Mixer Relationship Specialty Start Date End Date Shellie Esposito MD [address] [place] [address] PCP - General Family Medicine 05/23/23 documented as of this encounter
--- OUTSIDE RECORDS SUMMARY | 2024-05-28 17:35 | XMS_ITS | Clinical Summary ---
Author Organization [facility] Address [address] [place] [address] Phone Care Team Providers Care Aluminum Hydroxide Process Operator Name Role Phone Shellie Esposito MD Primary Care Provider [phone] Allergies Active Allergy Reactions Criticality Noted Date Comments Other GI intolerance,Other (see comments) Low 11/02/2019 Quinolones GI intolerance,Other (see comments) High 11/02/2019 Medications omeprazole (PriLOSEC) [address] capsule Take 20 mg by mouth 1 (one) time each day 4 Active metoprolol succinate XL (TOPROL XL) 25 MG 24 hr tablet Take 25 mg by mouth 1 (one) time each day Active losartan (COZAAR) 100 MG tablet Take 100 mg by mouth 1 (one) time each day Active predniSONE 5 MG tablet TAKE 1 TABLET BY MOUTH ONCE DAILY WITH A MEAL Active Iron Polysacch Snoap-Q88-EK 150-0.025-1 MG capsule Take 1 capsule by mouth in the morning. 3 Active atorvastatin (LIPITOR) 10 MG tablet Take 10 mg by mouth 1 (one) time each day Active cetirizine (ZyrTEC) 10 MG tablet Take 10 mg by mouth 1 (one) time each day 7 Active acetaminophen (TYLENOL) 325 MG tablet Four Times Daily as needed 0 Active cholecalciferol (VITAMIN D-3) 25 MCG (1000 UT) tablet Take 1,000 Units by mouth 1 (one) time each day Active gabapentin (NEURONTIN) 600 MG tablet Take 600 mg by mouth 1 (one) time each day 4 Active Polyethyl Glycol-Propyl Glycol (Systane) 0.4-0.3 % solution Administer 1 drop into affected eye(s) 1 (one) time each day 6 Active gabapentin (NEURONTIN) 300 MG capsule Take 300 mg by mouth in the morning. 4 Active metFORMIN (GLUCOPHAGE) 500 MG tablet Take 500 mg by mouth in the morning and 500 mg in the evening. Take with meals. Active oxybutynin XL (DITROPAN-XL) 5 MG 24 hr tablet Take 5 mg by mouth 1 (one) time each day Active sodium bicarbonate 650 MG tablet Take 3 tablets (1,950 mg total) by mouth 1 (one) time each day 270 tablet 3 4 12/01/19 25 Active Active Problems Problem Noted Date Diagnosed Date Stage 3a chronic kidney disease 11/13/2023 Hypertensive chronic kidney disease with stage 1 through stage 4 chronic kidney disease, or unspecified chronic kidney disease 11/13/2023 Type 2 diabetes mellitus wit h diabetic chronic kidney disease 08/24/2020 Metabolic acidosis 03/29/2020 Sarcoidosis 01/20/2020 nursing home current use of anticoagulant 9 Overview (11/13/2023): INR Goal Range: 1.8 - 2.5 Renal stone 12/13/2008 Esophageal reflux 05/11/2004 Obesity 12/30/2000 Resolved Problems Problem Noted Date Diagnosed Date Resolved Date Stage 3b chronic kidney disease 02/05/2023 11/13/2023 Hypertensive disorder 10/03/20212023 Vitamin D deficiency 12/15/2008 024 Encounters Date Type Department Care Team Description 05/28/2024 Office Communication [facility] [address] [place] [phone] Delio Yeh MD 05/18/2024 Office Communication [facility] [address] [place] [address] Delio Yeh MD 05/18/2024 Office Communication [facility] [address] [place] [phone] Delio Yeh MD 05/18/2024 Office Communication [facility] [address] [facility] [address] [place] [phone] Faith Castañeda RN 05/10/2024 Orders Only [facility] [address] [place] [phone] Delio Yeh MD Stage 3a chronic kidney disease (HCC) 04/23/2024 Telephone [facility] [address] [facility] [address] [place] [phone] Farhan Triplett from Last 3 Months Immunizations Name Administration Dates Next Due Influenza Vaccine, Quadrivalent, Adjuvanted 03/23,05/06/2022,03/15/2021 Moderna Sars-cov-2 (Covid-19 ) Vaccine, Mrna, Sagar Protein 05/07/2023 Family History Medical History Relation Comments Cancer Father prostate Hypertension Father Osteoarthritis Father Cancer Father's Sister breast Alzheimer's disease Maternal Grandmother Cancer Paternal Grandmother breast Hypertension Sister Relation Status Comments Father Father's Sister Maternal Grandmother Paternal Grandmother Sister Social History Tobacco Use Types Packs/Day Years Used Date Smoking Tobacco: Never Smokeless Tobacco: Never Tobacco Cessation:Counseling Given: Not Answered Alcohol Use Standard Drinks/Week Comments Not Currently 0 (1 standard drink = 0.6 oz pur e alcohol) Comments Unknown Sex and Gender Information Value Date Recorded Sex Assigned at Not on file Legal Sex Female 11:08 AM EST Gender Identity Not on file Sexual Orientation Not on file Last Filed Vital Signs Vital Sign Reading Time Taken Comments Blood Pressure 142/72 11/13/2023 3:52 PM CDT Pulse 83 11/13/2023 3:52 PM CDT Temperature - - Respiratory Rate - - Oxygen Saturation 96% 11/13/2023 3:52 PM CDT Inhaled Oxygen Concentration - - Weight 76.7 kg (169 lb) 11/13/2023 3:52 PM CDT Height 153.7 cm (5' 0.5) 11/13/2023 3:52 PM CDT Body Mass Index 32.46 11/13/2023 3:52 PM CDT Plan of Treatment Upcoming Encounters Date Type Department Care Team (Late Contact Info) Description 05/31/2024 2:00 PM RHIT Office Visit [facility] [address], [place] [address] Delio Yeh MD [address] [place] [address] Health Maintenance Due Date Last Done Comments Diabetes: Pedal Pulse Checked 09/22/2023 Diabetes: Sensory Foot Exam 09/22/2023 Diabetes: Visual Foot Exam 09/22/2023 Diabetes: Hemoglobin A1C 02/03/2024 11/03/2023 Diabetes: Ophthalmology Exam 02/04/2024, 01/28/2022, 01/25/2021 Pneumococcal Vaccine: 65+ Years Completed 01/24/2020, 12/14/2018 Influenza Vaccine Completed 04/15/2024, , 05/06/2022, Additional history exists Hepatitis B Vaccine Aged Out No longe r eligible based on patient's age to complete this topic Procedures Procedure Name Priority Date/Time Associated Diagnosis Comments PROTEIN / CREATININE RATIO, URINE Routine 05/18/2024 8:13 AM RHIT Stage 3a chronic kidney disease (HCC) VITAMIN D 25 HYDROXY Routine 05/17/2024 1:44 PM RHIT Stage 3a chronic kidney disease (HCC) HEMOGLOBIN Routine 05/17/2024 1:44 PM RHIT Stage 3a chronic kidney disease (HCC) RENAL FUNCTION PANEL Routine 05/17/2024 1:44 PM RHIT Stage 3a chronic kidney disease (HCC) from Last 3 Months Results * (ABNORMAL) Urine Protein / creatinine ratio (05/18/2024 8:13 AM RHIT) Creatinine, Ur 152 20 - 275 mg/dL See order comments Urine Protein/Creati nine Ratio 1,763(H) 24 - 184 mg/g creat See order comments Protein/Creati nine Ratio, Urine 1.763(H) 0.024 - 0.184 mg/mg creat See order comments Protein Urine Random 268(H) 5 - 24 mg/dL See order comments Comment: Verified by repeat analysis. Urine (Urine, Clean Catch) 05/18/2024 8:13 AM RHIT 05/18/2024 8:14 AM RHIT Narrative [facility] - 05/19/2024 3:50 PM RHIT SPLIT 05/17/2024 FROM [id number] Resulting Agency Comment Performing Organization Information: Site ID: [id number] Name: [email or web address] Address: [address] [place] [phone] Director: Pedrito Yap us Delio Yeh MD LAB URINE ORDERABLES Final Re sult [facility] See order comments [place] [address] * Vitamin D 25 hydroxy (05/17/2024 1:44 PM RHIT) Vitamin D, 25-OH, Total, IA 31 30 [...] D, (D2,D3), LC/MS/MS is recommended: order code 95223 (patients >2yrs). See Note 1 Note 1 For additional information, please refer to http://education.Zelnas/faq/RUD745 (This link is being provided for informational/ educational purposes only.) Blood (Blood, Venous) 05/17/2024 1:44 PM RHIT 05/17/2024 1:44 PM RHIT Narrative [facility] - 05/18/2024 6:22 AM RHIT MULTIPLE TESTING PRIORITIES; ROUTINE TESTING TO FOLLOW. Resulting Agency Comment Performing Organization Information: Site ID: [id number] Name: [email or web address] Address: [address] [place] [phone] Director: Pedrito Yap Delio Yeh MD LAB BLOOD ORDERABLES Final Re sult Performing Organization Address [facility]/ZIP Co de Phone Number [facility] See order comments [place] [address] * Hemoglobin (05/17/2024 1:44 PM RHIT) Hemoglobin 12.4 11.7 - 15.5 g/dL See order comments Blood (Blood, Venous) 05/17/2024 1:44 PM RHIT 05/17/2024 1:44 PM RHIT Narrative [facility] - 05/18/2024 6:22 AM RHIT MULTIPLE TESTING PRIORITIES; ROUTINE TESTING TO FOLLOW. Resulting Agency Comment Performing Organization Information: Site ID: [id number] Name: [facility] Address: [address] [place] [phone] Director: Pedrito Yap Delio Yeh MD LAB BLOOD ORDERABLES Final sul Performing Organization Address [facility] de Phone Number [facility] See order comments [place] [address] * (ABNORMAL) Renal function panel (05/17/2024 1:44 PM RHIT) Glucose 189(H) 65 - 99 mg/dL See [...] comments Blood (Blood, Venous) 05/17/2024 1:44 PM RHIT 05/17/2024 1:44 PM RHIT Narrative [facility] - 05/18/2024 6:22 AM RHIT MULTIPLE TESTING PRIORITIES; ROUTINE TESTING TO FOLLOW. Resulting Agency Comment Performing Organization Information: Site ID: CB [facility] Address: [address] [place] [phone] Director: ePdrito Yap us Delio Yeh MD LAB BLOOD ORDERABLES Final Re sult [facility] See order comments [place] [address] from Last 3 Months Insurance [facility] MEDICARE Care Teams Aluminum Hydroxide Process Operator Relationship Specialty Start Date End Date Shellie Esposito MD [address] [place] [address] PCP - General Family Medicine 05/23/23
--- OUTSIDE RECORDS SUMMARY | 2024-05-28 17:35 | XMS_ITS | Clinical Summary ---
Author Organization [facility] Address [address] [place] [id number] Care Team Providers Care Software Sales Name Role Phone Unavailable Primary Care Provider Unavailabl e Source Comments Patient records contain information from all sites at [facility]. For routine questions regarding patient records, call [phone] during business hours, M-F 8:00 AM - 5:00 PM Central Time. Record requests for emergency care only can be directed to [phone] at any time.[facility] Allergies Active Allergy Reactions Criticality Noted Date Comments Animal Dander GI intolerance Low 11/02/2019 Quinolones GI intolerance High 11/02/2019 Medications cranberry fruit extract (CRANBERRY EXTRACT ORAL) Take 2 capsules by mouth 2 (two) times a day. Strength unknown 6 Active metFORMIN (GLUCOPHAGE) 500 mg tablet Take 1 tablet by mouth 2 (two) times a day. 6 Active vknyl-5u-pwx-epa -fish oil 300-1,000 mg capsule Take 1 [...] Take 25 mg by mouth. 2 Active qyer-N82-omges acid (FERREX 150 FORTE) 150-25-1 mg-mcg-mg per capsule Take 1 capsule by mouth daily. 3 Active cholecalciferol, vitamin D3, 25 mcg (1,000 Unit) tablet daily. Active olporwy-tybt-alu eq-ijke-zjrpsf 100 mg-150 mg- 50 mg-150 mg capsule [...] How often do you attend chur or hindu services? More than 4 times per year 08/23/2020 Do you belong to any clubs o r organizations such as sabianist groups, unions, fraternal or athletic groups, or [...] of Binge Drinking Not on file 08/2020 [facility] [place] [facility] - Occupational [...] on file Legal Sex Female 11:06 PM HAY BUCKLER Gender Identity Female 12/04/2017 2:38 PM CDT [...] 02/01/2016 4:18 PM CDT Plan of Treatment Health Maintenance Due Date Last Done Comments Hepatitis C Screening 1945 Zoster Vaccines (1 of 2) 1963 Hepatitis B Vaccines (1 of 3 - Risk 3-dose series) 2004 RSV vaccine - (32-36 weeks) or 60+ years (1 - 1-dose 75+ series) 2019 Depression Screening (Annual PHQ-2) 06/23/2023 Fall Risk Screen (Annual) 06/23/2023 COVID-19 Vaccine ( season) 2024 05/07/2023, 05/20/2022, 10/03/2021, Additional history exists Creatinine Level (Kidney Function Test) 11/02/2024 11/03/2023, 04/09/2023, 02/03/2023, Additional history exists Potassium Level 11/02/2024 11/03/2023, 03/23, 02/03/2023, Additional history exists Sodium Level 11/02/2024 11/03/2023, 03/23, 02/03/2023, Additional history exists DTaP,Tdap,and Td Vaccines (3 - Td or Tdap) 12/28/2025 12/29/2015, 05/10/2009 Pneumococcal vaccine (65+ years) Completed 01/24/2020, 12/14/2018 Bone Density Scan (Osteoporosis Screen) Discontinued 11/05/2023 Influenza Vaccine Completed 04/15/2024, , 05/06/2022, Additional history exists Mammogram Discontinued 05/17/2024, 04/24, 04/09/2023, Additional history exists IPV Vaccines Aged Out No longer eligi ble based on patient's age to complete this topic Medical Devices Implanted Type Area Sales Associate Device Identifier Shelf Expiration Date Model / Serial / Lot Hawkins Orthoblend Sm Defect 5cc - Ferreira [id number] Implanted:Qty: 1 on 01/22/2016 Bone or Tissue Other/Legacy - See Implant Description [employer] Description:Device Manufactu rer - [employer]. Body Location - Other. bone for packing defect. Device Status Text - [id number]. [place] Silicone Sz 10 - Ferreira [id number] Implanted:Qty: 1 on 01/22/2016 Finger Implant Other/Legacy - See Implant Description Integra Description:Device Manufactu rer - Integra [employer] Ron. Body Location - Other. Left. Device Status Text - [id number]. K-Wire-Ss 4 Smooth .045 - Ferreira [id number] Implanted:Qty: 2 on 12/29/2015 Hardware e.g. pins/screws /rods [place] Description:Device Manufactu rer - [place] Ron.. Device Status Text - [id number]-872. K-Wire-Ss 4 Smooth .035 - Ferreira [id number] Implanted:Qty: 2 on 12/29/2015 Hardware e.g. pins/screws /rods [place] Description:Device Manufactu rer - [place] Ron.. Device Status Text - HARDWARE-873. K-Wire-Ss 4 Smooth .035 - Ferreira [id number] Implanted:Qty: 1 on 01/22/2016 Hardware e.g. pins/screws /rods Aleksey Description:Device Manufactu rer - [place] Ron.. Device Status Text - HARDWARE-873. Conversions [...] Chloride, S 103 98 - 107 MMOL/L [facility] HX Bicarbonate, P/S 22 22 - 29 MMOL/L [facility] Sodium, S 141 135 - 145 MMOL/L [facility] Potassium, S 4.1 3.6 - 5.2 MMOL/L [facility] Creatinine 1.1 0.6 - 1.1 MG/DL [facility] BUN (Blood Urea Nitrogen), S 11 6 - 21 MG/DL [facility] Anion Gap 16(H) 7 - 15 [facility] Glucose, S 155(H) 70 - 140 MG/DL [facility] 01/01/2016 4:39 PM CDT 01/01/2016 4:39 PM CDT Mian Godoy LAB BLOOD ADD-ON Final Result [facility] [address] [place], [place] [address] from Last 3 Months or Most Recently Relevant to Health Maintenance Insurance [facility]
== END 2024-05-28 17:43 | disposition home or self-care (01) ==
LOC: ED 17:33
PROVIDERS: Emergency Provider Emergency Medicine; PCP Family Medicine
DX: I10 Essential (primary) hypertension (principal)
CPT/HCPCS: 80048; 84484; 99282; 99283